=== PATIENT | male | born 1965 | race Caucasian/White ===

== ENCOUNTER 2020-07-02 09:53 | Outpatient (CLI) | payer OTHER, SELFPAY ==
--- NOTE | 2020-07-02 10:06 | USCV_ITS ---
Randolph Lancaster Age: 55 Gender: M : 1965 Exam Date: 07/02/2020 10:38 Ordering Phys: Geri Ann NP Technologist: Geetha Candelaria [place] [facility] [place]ication: REPAIRED AAA HISTORY: Diameter (cm) AP x Transverse x Length Velocity (cm/s) Waveform Prox Aorta: x x Mid Aorta: x x Distal Aorta: x x Right Iliac Prox: x x Left Iliac Prox: x x Stent Prox Landing 4.32 x 4.69 x 26.90 Aneurysmal Sac Max 3.57 x 4.16 x 27.90 Lt Lat Sac Dim Rt Lat Sac Dim Stent Dist Landing 2.95 x 4.01 x 36.60 Right Iliac Stent 1.91 x 2.05 x 47.30 Left Iliac Stent 1.48 x 1.39 x 59.10 Right Renal Art 76.00 Left Renal Art 48.50 FINDINGS: The aneurysmmeasured 4.3 x 4.7 cm proximally. Could not visualize the stent graft /aneurysm sac properly The right proximal common iliac artery measured 1.9 x 2.0 cm in diameter The left proximal common iliac artery measured 1.48 x 1.39 cm. CONCLUSIONS Maximum diameter of the aneurysm was measuring 4.3 x 4.7 cm Could not identify the aneurysm sac or stent graft properly Proximal common iliac artery segments were found to be patent and dilated. This is a suboptimal study. Needs to be repeated Dr Will Dodd MD [facility] (Electronically Signed) Final Date: 05 July 2020 17:39 S
== END 2020-07-02 09:54 | disposition home or self-care (01) ==
LOC: RAD 09:58
PROVIDERS: PCP Nurse Practitioner Family; Visit Provider Nurse Practitioner Family
DX: I71.4 Abdominal aortic aneurysm, without rupture (principal); Z98.890 Other specified postprocedural states
CPT/HCPCS: 93978

== ENCOUNTER 2020-07-08 07:56 | Outpatient (CLI) | payer OTHER, SELFPAY ==
--- NOTE | 2020-07-08 08:30 | XR_ITS ---
WS: [id number] LEFT HIP HISTORY: R10.32 - Left lower quadrant pain COMPARISON: None available. LEFT hip: No acute fracture or dislocation. Very mild degenerative changes involving the superior laura tabulum. Cortical irregularity with increasing sclerosis. Surface of the humeral head is also irregul ar. No bone destruction. No osteoblastic or osteolytic lesions. XR/XR hip LT 2-3V wo/w pel* [id number] IMPRESSION: 1. No hip fracture. 2. Mild degenerative osteoarthritic changes at the LEFT hip joint.
== END 2020-07-08 07:57 | disposition home or self-care (01) ==
LOC: RADWPI 08:00
PROVIDERS: PCP Nurse Practitioner Family; Visit Provider Surgery
DX: R10.32 Left lower quadrant pain (principal)
CPT/HCPCS: 73502

== ENCOUNTER 2020-08-15 16:51 | Emergency (ER) | payer OTHER, SELFPAY ==
[2020-08-15 17:31] VITALS: BP 131/79; PULSE 59; RESP 16; TEMP 36.6; O2SAT 96; BMI 27.1
--- NOTE | 2020-08-15 17:48 | W.ED.ABDPA2 ---
HPI - Abdominal Pain General: Chief Complaint: Abdominal Pain Stated Complaint: lower Abd pain, groin pain Time Seen by Provider: 08/15/20 17:48 History of Present Illness: HPI narrative: 55-year-old male patient comes in today with complaints of left lower abdominal pain. Patient reports he has had this pain off and on for the last 2 years after having a hernia repair. Patient reports that the pain seems to be getting worse. Patient reports that the pain is worse when he wakes up in the morning and he starts to move around. Patient reports he will take his gabapentin and then take a hot shower and seems to have improvement with the pain after the this regimen. Over the past 1 to 2 weeks patient states that the pain is become unbearable at times. Patient has seen Dr. Corrigan the surgeon and his primary care regarding these complaints. Patient was placed on gabapentin to help with this pain. Patient reports no fever or changes in bowel habits. Review of Systems General: Reports: 10 or more systems reviewed and unremarkable except in HPI and below GI: Reports: abdominal pain : Reports: testicular pain Musc: Reports: other (Left lower extremity swelling) PFSH ED PFSH: Surgical History History of AAA (abdominal aortic aneurysm) repair Status post left inguinal hernia repair Family History Mother Cancer Sister Cancer Social History (Updated 08/15/20 @ 17:38 by Lawson Arias RN) Smoking and tobacco status: former smoker Second hand smoke exposure: No Smoking risk assessment/counseling performed?: No Alcohol intake: current Alcohol intake frequency: few times a month Desire information about alcohol rehabilitation?: No Substance/Drug Use: never Adopted: No Caregiver/support person: No Lives independently: Yes Household members: none Physical Exam Const: COMMON NORMALS: no acute distress and patient oriented x3 GENERAL APPEARANCE: cooperative HENMT: COMMON NORMALS: normocephalic and Normal external nose present HEAD & SCALP: normal to inspection and normocephalic NOSE: Normal external nose present MOUTH: Normal oral and palatal mucosa present Eye: GENERAL EYE: appearance normal, both eyes and all related structures Neck/C-Spine: COMMON NORMALS: full ROM Lymph: LYMPHATIC: no lymphadenopathy noted Chest: COMMONS NORMALS: normal inspection of the chest Resp: COMMON NORMALS: normal respiratory effort EFFORT & INSPECTION: Yes able to speak in complete sentences Cardio: COMMON NORMALS: regular rate and regular rhythm RATE: regular rate RHYTHM: regular rhythm GI: OTHER: No signs of redness, no rebound or guarding, tenderness is noted along the surgical site of the left lower abdomen/inguinal area. : COMMON NORMALS: Yes no CVA tenderness BLADDER/KIDNEY EXAM: Yes no CVA tenderness Back/Pelvis: COMMON NORMALS: no CVA tenderness and thoracic and lumbar spine normal to inspection Extremity: COMMON NORMALS: normal to inspection Neuro: COMMON NORMALS: patient oriented x3 and moves all extremities Psych: COMMON NORMALS: mental status grossly normal and cooperative Skin: COMMON NORMALS: no rashes or lesions noted GENERAL SKIN EXAM: no rashes or lesions noted Course ED course: 1829,Received call from radiologist concerning some abnormality of patient's stent graft for his AAA. Patient had a abdominal aorta repair done about 5 years ago in [facility] by Dr. Johnson. I reviewed this concern with Dr. Vera who recommended we go ahead and continue with a CTA and then try to contact surgeon. 2045, CTA was completed Dr. Myers, radiologist, called and did confirm that there was a endoleak to the graft that was noted on the CTA. I reviewed this with Dr. Vera and we will contact vascular at [facility] for further consultation. 2119, talked with Dr. Corcoran who recommended patient follow-up in his clinic for further evaluation due to the endoleak of the AAA graft. Vital Signs: Vital signs: Vital Signs Temperature 97.9 F 08/15/20 17:31 Pulse Rate 59 L 08/15/20 17:31 Respiratory Rate 17 08/15/20 21:41 Blood Pressure 131/79 08/15/20 17:31 Pulse Oximetry 98 08/15/20 21:41 MDM - Abdominal Pain MDM Narrative: Medical decision making narrative: Patient comes in today for complaints of left lower quadrant abdominal pain. On exam patient appears well. Abdomen is tender in the left lower quadrant along the inguinal area of his surgical repair. Skin is warm and dry and color is pink. Vital signs are normal. Differential diagnosis includes malingering, renal calculi, hernia, reaction to surgical mesh. Laboratory values were unremarkable. CT scan of the abdomen pelvis noted a questionable leak to the AAA graft with recommendations of CTA. CTA was performed of the chest abdomen and pelvis which confirmed a endoleak to the aortic graft. No sign of significant rupture was noted at this time. Vital signs were normal. I reviewed this with Dr. Corcoran at [facility] a vascular surgeon he recommended that patient just be followed in outpatient clinic at this time since there was no signs of rupture. Patient was agreeable to this plan. Relating patient's pain that patient has some chronic back issues I believe he has a degenerative disc disease that is probably causing a sciatic type pain response. Patient will be given some hydrocodone for the next few days was recommended to follow-up with his primary care for further evaluation of his back pain. Another thought may be some surgical adhesions secondary to his hernia repair, although this is unlikely due to patient having pain radiating down his right leg. Lab Data: Labs: Lab Results 08/15/20 08/15/20 08/15/20 Range/Units 18:50 18:50 18:50 WBC 7.5 (4.0-10.0) 10^3/ uL RBC 4.09 L (4.1-5.3) 10^6/u L Hgb 13.0 (11.7-16.6) g/dL Hct 39.3 L (42.0-52.0) % MCV 96.1 H (80-94) fL MCH 31.8 (28.0-34.0) pg MCHC 33.1 (30.0-36.0) g/dL RDW 12.8 (12.1-15.1) % Plt Count 201 (130-400) 10^3/c mm MPV 10.1 (7.4-10.4) fL Neut % (Auto) 54.9 % Lymph % (Auto) 32.1 % [place] % (Auto) 8.2 % Eos % (Auto) 3.9 % Baso % (Auto) 0.8 % Neut # (Auto) 4.13 (1.8-7.7) 10^3/u L Lymph # (Auto) 2.4 (0.8-4.8) 10^3/u L [place] # (Auto) 0.6 (0.2-0.9) 10^3/u L Eos # (Auto) 0.3 (0.0-0.8) 10^3/u L Baso # (Auto) 0.1 (0.0-0.1) 10^3/u L Nucleated RBC % (a uto) 0 % Nucleated RBCs # 0.0 /100WBC D-Dimer 2.02 H (0-0.59) ug/mIFE U Sodium 137 (136-145) mmol/L Potassium 3.8 (3.5-5.1) mmol/L Chloride 105 (98-107) mmol/L Carbon Dioxide 25 (22-29) mmol/L Anion Gap 10.8 (5-19) BUN 9 (6-20) mg/dL Creatinine 0.8 (0.7-1.2) mg/dL GFR Calculation 100.7 (90-130) mL/min Glucose 86 (65-115) mg/dL Calculated Osmolal ity 282 L (285-295) mOsm/k g Calcium 8.6 (8.5-10.5) mg/dL Total Bilirubin 0.5 (0.15-1.2) mg/dL AST 17 (0-40) U/L ALT 14 (0-41) U/L Alkaline Phosphata se 68 (40-130) IU/L C-Reactive Protein 2.2 (0.0-4.9) mg/L Total Protein 7.0 (6.6-8.7) g/dL Albumin 4.2 (3.5-5.2) g/dL Globulin 2.8 (1.3-4.6) g/dL Lipase 102 H (13-60) U/L Urine Color (Yellow) Urine Appearance (CLEAR) Urine pH (5-7) Ur Specific Gravit y (1.005-1.030) Urine Protein (Negative) Urine Glucose (UA) (Normal) Urine Ketones (Negative) Urine Blood (Negative) Urine Nitrate (Negative) Urine Bilirubin (Negative) Urine Urobilinogen (Negative) mg/dL Ur Leukocyte Gwen ase (Negative) 08/15/20 Range/Units 18:56 WBC (4.0-10.0) 10^3/ uL RBC (4.1-5.3) 10^6/u L Hgb (11.7-16.6) g/dL Hct (42.0-52.0) % MCV (80-94) fL MCH (28.0-34.0) pg MCHC (30.0-36.0) g/dL RDW (12.1-15.1) % Plt Count (130-400) 10^3/c mm MPV (7.4-10.4) fL Neut % (Auto) % Lymph % (Auto) % Bur[place]on % (Auto) % Eos % (Auto) % Baso % (Auto) % Neut # (Auto) (1.8-7.7) 10^3/u L Lymph # (Auto) (0.8-4.8) 10^3/u L [place] # (Auto) (0.2-0.9) 10^3/u L Eos # (Auto) (0.0-0.8) 10^3/u L Baso # (Auto) (0.0-0.1) 10^3/u L Nucleated RBC % (a uto) % Nucleated RBCs # /100WBC D-Dimer (0-0.59) ug/mIFE U Sodium (136-145) mmol/L Potassium (3.5-5.1) mmol/L Chloride (98-107) mmol/L Carbon Dioxide (22-29) mmol/L Anion Gap (5-19) BUN (6-20) mg/dL Creatinine (0.7-1.2) mg/dL GFR Calculation (90-130) mL/min Glucose (65-115) mg/dL Calculated Osmolal ity (285-295) mOsm/k g Calcium (8.5-10.5) mg/dL Total Bilirubin (0.15-1.2) mg/dL AST (0-40) U/L ALT (0-41) U/L Alkaline Phosphata se (40-130) IU/L C-Reactive Protein (0.0-4.9) mg/L Total Protein (6.6-8.7) g/dL Albumin (3.5-5.2) g/dL Globulin (1.3-4.6) g/dL Lipase (13-60) U/L Urine Color Yellow (Yellow) Urine Appearance Clear (CLEAR) Urine pH 5 (5-7) Ur Specific Gravit y 1.015 (1.005-1.030) Urine Protein Neg (Negative) Urine Glucose (UA) Norm (Normal) Urine Ketones Negative (Negative) Urine Blood Neg (Negative) Urine Nitrate Negative (Negative) Urine Bilirubin Neg (Negative) Urine Urobilinogen 1 H (Negative) mg/dL Ur Leukocyte Gwen ase Negative (Negative) Discharge Plan Discharge Patient Disposition: Home Clinical Impression: S/P AAA repair using bifurcation graft Abdominal pain Qualifiers: Abdominal location: left lower quadrant Qualified Code(s): R10.32 - Left lower quadrant pain Condition: Stable Prescriptions: New hydrocodone-acetaminophen 5-325 mg tablet 1 tab PO Q6H PRN (Reason: pain) Qty: 20 RF: 0 No Action pravastatin 10 mg tablet 10 mg PO DAILY RF: 0 gabapentin [Neurontin] 100 mg capsule 100 mg PO TID Qty: 90 RF: 3 clopidogrel 75 mg tablet 75 mg PO DAILY@0800 RF: 0 amlodipine 10 mg tablet 10 mg PO DAILY@0800 RF: 0 aspirin [Adult Aspirin Regimen] 81 mg tablet,delayed release (DR/EC) 81 mg PO DAILY@0800 RF: 0 multivitamin Tablet 1 tab PO DAILY@0800 RF: 0 Dazey-3 + Vitamin D3 1 cap PO DAILY@0800 RF: 0 Silica Complex 1 tab PO DAILY@0800 RF: 0 Wellness Immunity 1 tab PO DAILY@0800 RF: 0 Discharge Orders: Discharge ED (Routine); Ordered 08/15/20 Ordered By: Rob Bender Referrals: Geri Ann NP [Primary Care Provider] - Discharge Diet: Usual diet Discharge Activity: Increase activity as tolerated Patient Instructions: Abdominal Pain (ED), Opioid Safety Activity Restrictions/Additional Instructions: Take medications as directed. Drink plenty of water with medication. Activity as tolerated. You will need to follow-up with vascular at [facility]. They will be contacting you with a follow-up appointment time. Dr. Corcoran was the vascular surgeon I had spoken with today. I believe the pain that you are having though is related to either some surgical adhesions from your hernia repair or may be related to your chronic back pain with sciatica. I do recommend that you follow-up regarding this pain with your primary care. Coding Level of Care Code ED Placement Manager for Mayte Fwd Exam Comprehensive
--- NOTE | 2020-08-15 18:00 | CTR_ITS ---
PROCEDURE INFORMATION: Exam: CT Abdomen And Pelvis With Contrast Exam date and time: 08/15/2020 6:08 PM Age: 55 years old Clinical indication: Abdominal pain; Other: Left lower abd pain radiating to groin; Prior surgery; Surgery type: Hernia, aaa; Additional info: Left abd/groin pain TECHNIQUE: Imaging protocol: Computed tomography of the abdomen and pelvis with contrast. Radiation optimization: All CT scans at this facility use at least one of these dose optimization techniques: automated exposure control; mA and/or kV adjustment per patient size (includes targeted exams where dose is matched to clinical indication); or iterative reconstruction. Contrast material: OMNI 300; Contrast volume: 95 ml; Contrast route: INTRAVENOUS (IV); COMPARISON: 1. CT abdomen pelvis w con* [id number] 01/22/2017 2:27 AM 2. CTA AbdAorta Runoff Leg [id number] 01/06/2018 12:20:58 PM 3. CTA Abdomen/Pelvis [id number] 02/22/2017 9:48:27 AM RADIATION DOSE METRICS: Total DLP (mGy-cm): 1587.32 FINDINGS: Lungs: Mild dependent atelectasis at the lung bases. Liver: There is 5 mm sized simple cyst in the left lobe of the liver. Gallbladder and bile ducts: The gallbladder is normal. Pancreas: The pancreas is normal. Spleen: The spleen is normal. Adrenal glands: The adrenal glands are normal. Kidneys and ureters: There is a right renal collecting system calcification. The left kidney is normal. There is no evidence of hydronephrosis. There is no stone along the course of either ureter. Stomach and bowel: There is no evidence of colitis/diverticulitis. Appendix: A normal appendix is identified. Intraperitoneal space: Unremarkable. No free air. No significant fluid collection. Vasculature: There are findings of EVAR as seen on previous examinations. The diameter of the stent graft is larger than on prior studies and now almost completely fills the original aneurysm with maximum diameter of 4.7 cm. This increase in diameter could represent failure of the stent graft. Further evaluation such as with CT angiography is suggested when clinically appropriate. There is some contrast within the upper end of the aneurysm beyond the margins of the graft and this could represent endoleak. This would be better evaluated on CT angiography. Renal arteries, celiac, and SMA remain patent. Lymph nodes: Unremarkable. No enlarged lymph nodes. Urinary bladder: Unremarkable as visualized. Reproductive: The prostate demonstrates mild nonspecific enlargement. The seminal vesicles are normal. Bones/joints: The lumbar spine demonstrates moderate degenerative changes at multiple levels. Soft tissues: Unremarkable. CT/CT abdomen pelvis w con* [id number] IMPRESSION: 1. Increasing diameter of the EVAR stent which could represent stent graft failure. Further evaluation is suggested. 2. Right nephrolithiasis. COMMENTS: THIS REPORT CONTAINS FINDINGS THAT MAY BE CRITICAL TO PATIENT CARE. The findings were verbally communicated via telephone conference with KEON FRASER at 7:03 PM FELLER OPERATOR on 08/15/2020. The findings were acknowledged and understood. Radiation Dose CTDIVOL = (mGy): DLP = 1587.32 (mGy-cm)
[2020-08-15] MEDS: iohexol 300 mg/mL 100 mL Btl IV (18:25)
[2020-08-15 19:13] LABS: Basophils # 0.1 10^3/uL (0.0-0.1); Basophils % 0.8 %; Eosinophils # 0.3 10^3/uL (0.0-0.8); Eosinophils % 3.9 %; Hematocrit 39.3 % (42.0-52.0); Lymphocytes # 2.4 10^3/uL (0.8-4.8); Lymphocytes % 32.1 %; Mean Corpuscular HGB Conc 33.1 g/dL (30.0-36.0); Mean Corpuscular Hemoglobin 31.8 pg (28.0-34.0); Mean Corpuscular Volume 96.1 fL (80-94); Mean Platelet Volume 10.1 fL (7.4-10.4); Monocytes # 0.6 10^3/uL (0.2-0.9); Monocytes % 8.2 %; Neutrophils # 4.13 10^3/uL (1.8-7.7); Neutrophils % 54.9 %; Nucleated Red Blood Cells % 0 %; Platelet Count 201 10^3/cmm (130-400); Red Blood Count 4.09 10^6/uL (4.1-5.3); Red Cell Distribution Width 12.8 % (12.1-15.1); White Blood Count 7.5 10^3/uL (4.0-10.0)
[2020-08-15 19:16] LABS: Add Urine Microscopic? NO
--- NOTE | 2020-08-15 19:18 | CTR_ITS ---
PROCEDURE INFORMATION: Exam: CT Angiography Chest With Contrast Exam date and time: 08/15/2020 7:32 PM Age: 55 years old Clinical indication: Abnormal findings; Abnormal diagnostic imaging exam; Abnormality: Aaa possibly leaking; Prior surgery; Surgery type: Hernia, aaa; Additional info: Abnormal CT exam, concern for leaking aneurysm TECHNIQUE: Imaging protocol: Computed tomographic angiography of the chest with contrast. 3D rendering (Not supervised by radiologist): MIP and/or 3D reconstructed images were created and reviewed. COMPARISON: CTA Abdomen/Pelvis [id number] 02/22/2017 9:48 AM FINDINGS: Pulmonary arteries: There is no evidence of filling defects within the pulmonary arterial circulation to suggest pulmonary embolism. Aorta: There is no thoracic aortic aneurysm or dissection. Lungs: There is calcified granuloma in the superior segment of the right lower lobe. There are 3 noncalcified nonspecific pulmonary nodules in the posterior left upper lobe measuring 6, 4, and 3 mm seen on images 24-26.For patients at low risk (minimal or absent history of smoking and of other known risk factors), no routine follow-up is indicated. For patients at high risk (history of smoking or of other known risk factors), consider optional CT Chest at 12 months. Pleural spaces: Unremarkable. No pneumothorax. No pleural effusion. Heart: There is mild atherosclerotic calcification of the coronary arteries. Lymph nodes: There are calcified right hilar lymph nodes in keeping with old granulomatous disease. There are small periaortic and AP window lymph nodes measuring up to 8 x 13 mm but no adenopathy. Bones/joints: Unremarkable. No acute fracture. Soft tissues: Unremarkable. IMPRESSION: 1. Old granulomatous disease. 2. Nonspecific noncalcified left pulmonary nodules, follow-up according to Fleischner society guidelines recommended. 3. No evidence of aortic aneurysm or dissection within the chest. PROCEDURE INFORMATION: Exam: CT Angiography Abdomen and Pelvis With Contrast Exam date and time: 08/15/2020 7:32 PM Age: 55 years old Clinical indication: Abnormal findings; Abnormal diagnostic imaging exam; Abnormality: Aaa possibly leaking; Prior surgery; Surgery type: Hernia, aaa; Additional info: Abnormal CT exam, concern for leaking aneurysm TECHNIQUE: Imaging protocol: Computed tomographic angiography of the abdomen and pelvis with contrast material. 3D rendering (Not supervised by radiologist): MIP and/or 3D reconstructed images were created by the technologist. Radiation optimization: All CT scans at this facility use at least one of these dose optimization techniques: automated exposure control; mA and/or kV adjustment per patient size (includes targeted exams where dose is matched to clinical indication); or iterative reconstruction. Contrast material: OMNI 350; Contrast volume: 95 ml; Contrast route: INTRAVENOUS (IV); COMPARISON: 1. CTA Abdomen/Pelvis [id number] 02/22/2017 9:[address] abdomen pelvis w con* [id number] 08/15/2020 6:39:07 PM 3. CTA AbdAorta Runoff Leg [id number] 01/06/2018 12:20:58 PM RADIATION DOSE METRICS: Total DLP (mGy-cm): 2117.15 FINDINGS: Aorta: Abdominal aortic aneurysm status post EVAR is again identified with endograft seen running from just below the level of the renal arteries through the iliac bifurcation and into the proximal iliac arteries on both sides. Compared with the prior examination the aortic aneurysm is approximately 1.5 cm longer. The graft end aneurysm measures approximately 4.4 cm in diameter at the entry zone compared with 3.3 on the previous examination. At a mid level aneurysm overall measures approximately 4.3 x 4.8 cm which is unchanged but the graft at this level now almost completely fills the lumen of the aneurysm and measures 4.0 x 4.3 cm compared with 3.2 x 4.0 cm on the prior study. At a lower level the graft measures 3.9 cm compared with 3.2 cm previously and just above the bifurcation the graft and aneurysm measure 3.7 cm in maximum diameter compared with 2.3 cm. Celiac trunk and mesenteric arteries: No occlusion or significant stenosis. Renal arteries: Single renal artery on each side. No evidence of renal artery stenosis or occlusion. Right iliac arteries: No occlusion or significant stenosis. Left iliac arteries: No occlusion or significant stenosis. Bypass grafts: There is contrast seen peripheral to the graft within the aorta at the upper end of the graft consistent with endoleak either type 1 or type 3 there may also be small endoleak in the distal graft just above the bifurcation. The findings on this examination are unusual post graft placement but may represent some form of graft failure. Further evaluation by vascular surgery is suggested. Liver: There is a small cyst in the left lobe liver not changed from previous. Gallbladder and bile ducts: The gallbladder is normal. Pancreas: The pancreas is normal. Spleen: The spleen is normal. Adrenal glands: The adrenal glands are normal. Kidneys and ureters: The kidneys are normal. Stomach and bowel: Unremarkable. No obstruction. No mucosal thickening. Appendix: A normal appendix is identified. Intraperitoneal space: Unremarkable. No free air. No significant fluid collection. Retroperitoneal space: There is no evidence of actual intra-abdominal or retroperitoneal leakage or other urgent finding on this examination. Lymph nodes: There is no evidence of lymphadenopathy. Urinary bladder: Unremarkable. No mass. Reproductive: Unremarkable as visualized. Bones/joints: No acute fracture. No dislocation. Soft tissues: Unremarkable. Other findings: There is no evidence of colitis/diverticulitis. CT/CT angio chest abdomen pelvis IMPRESSION: 1. Expanding EVAR graft in the abdominal aorta with findings of small endoleak. This may represent chronic graft failure. Further evaluation by vascular surgery is suggested. 2. No actual emergent finding is identified on this study. COMMENTS: Findings were discussed with KEON FRASER at 08/15/2020 8:41 PM CONTINUOUS DRIER HELPER. Radiation Dose CTDIVOL = (mGy): DLP = 2117.15 (mGy-cm)
[2020-08-15 19:21] LABS: Bilirubin Urine Neg (Negative); Blood Urine Neg (Negative); Glucose Urine UA Norm (Normal); Ketones Urine Negative (Negative); Leukocyte Esterase Urine Negative (Negative); Nitrate Urine Negative (Negative); Protein Urine Neg (Negative); Specific Gravity, Urine 1.015 (1.005-1.030); Urine Appearance Clear (CLEAR); Urine Color Yellow (Yellow); Urobilinogen Urine 1 mg/dL (Negative); pH Urine 5 (5-7)
[2020-08-15] MEDS: oxyCODONE-APAP 10-325 mg Tablet 1 TAB PO (19:25)
[2020-08-15 19:27] LABS: D Dimer 2.02 ug/mIFEU (0-0.59)
[2020-08-15 19:35] LABS: Alanine Aminotransferase 14 U/L (0-41); Albumin Level 4.2 g/dL (3.5-5.2); Alkaline Phosphatase 68 IU/L (40-130); Anion Gap 10.8 (5-19); Aspartate Amino Transferase 17 U/L (0-40); Blood Urea Nitrogen 9 mg/dL (6-20); C Reactive Protein 2.2 mg/L (0.0-4.9); Calcium 8.6 mg/dL (8.5-10.5); Carbon Dioxide 25 mmol/L (22-29); Chloride 105 mmol/L (98-107); Globulin 2.8 g/dL (1.3-4.6); Glomerular Filtration Rate 100.7 mL/min (90-130); Glucose 86 mg/dL (65-115); Lipase 102 U/L (13-60); Osmolality Calculated 282 mOsm/kg (285-295); Potassium 3.8 mmol/L (3.5-5.1); Sodium 137 mmol/L (136-145); Total Bilirubin 0.5 mg/dL (0.15-1.2)
[2020-08-15] MEDS: iohexol 350 mg/mL 100 mL Btl IV (19:40)
[2020-08-15 21:41] VITALS: RESP 17; O2SAT 98
--- NOTE | 2020-08-16 10:29 | DCPLANNER ---
Patient called rifle case repairer about a referral to a [facility] Vascular surgeon in [place], that patient stated he has not heard from them this morning about an appointment. compliance program manager got patients information, physician that seen patient, spoke with Dr. Gregory at [facility]. compliance program manager called the office, gave clinic patients information, faxed patients information to the clinic. Clinic will call patient with appointment information. compliance program manager called patient back and let patient know that his information was faxed to physicians clinic. The clinic will call patient with appointment information.
--- NOTE | 2020-08-30 14:04 | DCPLANNER ---
Patient had a follow up appointment scheduled for 08.28.20 with [facility] - patient did not attend the appointment.
== END 2020-08-15 21:42 | disposition home or self-care (01) ==
PROVIDERS: Emergency Provider Nurse Practitioner Family; PCP Nurse Practitioner Family
DX: R10.32 Left lower quadrant pain (principal); Z98.890 Other specified postprocedural states; Z79.02 Long term (current) use of antithrombotics/antiplatelets; Z79.82 Long term (current) use of aspirin; Z87.891 Personal history of nicotine dependence
CPT/HCPCS: 71275; 74174; 74177; 80053; 81003; 83690; 85025; 85378; 86140; 99283; Q9967

== ENCOUNTER 2020-08-26 11:33 | Emergency (ER) | payer OTHER, SELFPAY ==
[2020-08-26] VITALS (9 sets, daily range): BP systolic 120–179; BP diastolic 72–102; PULSE 62–98; RESP 12–21; TEMP 37.1; O2SAT 93–100; BMI 27.3
--- NOTE | 2020-08-26 11:43 | ECG_ITS ---
[facility] Test Date: 2020-08-26 Pat Name: Randolph Lancaster Department: Room: Gender: Male Universal Worker Assisted Living: : 1965 Requested By: Ravi Preston Order Number: [id number] MD: Will Dodd M.D. Measurements Intervals [place] Rate: 67 P: 265 MT: 153 QRS: -76 QRSD: 92 T: -64 QT: 340 QTc: 361 Interpretive Statements ECTOPIC ATRIAL RHYTHM LEFT AXIS DEVIATION [QRS AXIS < -30] VOLTAGE CRITERIA FOR LVH [MEETS CRITERIA IN ONE OF: R(aVL), S(V1), R(V5), R(V5/V6)+S(V1)] ST DEVIATION AND MODERATE T-WAVE ABNORMALITY, CONSIDER INFERIOR ISCHEMIA [-0.1+ mV T WAVE IN II/aVF] Compared to ECG 08/08/2015 12:48:30 Ectopic atrial rhythm now present Left-axis deviation now present Left ventricular hypertrophy now present T-wave abnormality now present Possible ischemia now present Sinus bradycardia no longer present Electronically Signed On 08-26-2020 23:57:56 CDT by Will Dodd M.D. [email or web address]
--- NOTE | 2020-08-26 11:47 | CT_ITS ---
WS: [id number] CTA CHEST ABDOMEN AND PELVIS TECHNIQUE: Noncontrast plus contrast enhanced CTA of the chest, abdomen, and pelvis with coronal and sagittal reformatted images and additional MIP Images. CLINICAL INFORMATION: AAA COMPARISON: CTA August 15, 2020 DLP: 2511.[address] scans at [facility] use at least one of these dose optimization techniques: automat ed exposure control; mA and/or kV adjustment per patient size (includes targeted exams where dose is matched to clinical indication); or iterative reconstruction. FINDINGS: Again seen is the infrarenal abdominal aortic aneurysm with aortic endograft and biiliac extension. S table aneurysm measures approximately 3.8 x 3.9 x 8.3 cm AP by transverse by craniocaudal unchanged f rom previous. Small endoleak at the proximal graft margin left eccentric location and distal margin eccentric to the right unchanged from previous. No evidence of increasing aneurysm sac. Celiac and SMA are patent. Proximal renal arteries are patent. Proximal common iliac arteries are unc hanged. Normal caliber thoracic aorta. No mediastinal or hilar lymphadenopathy. No acute pulmonary infiltrate s. Lungs well aerated. No focal pneumonia or pleural fluid. Normal caliber thoracic aorta. No evidenc e of aortic dissection. Small esophageal hiatal hernia. Tiny fat-containing umbilical hernia. No free fluid in the abdomen or pelvis. CT/CT angio chest abdomen pelvis IMPRESSION: 1. No significant changes since August 15, 2020 2. Normal caliber thoracic aorta. No evidence of aortic dissection. 3. Stable infrarenal abdominal aortic aneurysm with aortic endograft with biil iac extension. Aneurysm size is stable. 4. Tiny amount of eccentric endoleak at the graft margins consistent with type I endoleak as described above. Recommend vascular surgery consult. 5. Other nonvascular findings are stable and described above.
[2020-08-26 11:57] LABS: Basophils # 0.1 10^3/uL (0.0-0.1); Basophils % 0.7 %; Eosinophils # 0.1 10^3/uL (0.0-0.8); Eosinophils % 1.5 %; Hematocrit 46.1 % (42.0-52.0); Hemoglobin 15.4 g/dL (11.7-16.6); Lymphocytes # 2.2 10^3/uL (0.8-4.8); Mean Corpuscular HGB Conc 33.4 g/dL (30.0-36.0); Mean Corpuscular Volume 95.6 fL (80-94); Mean Platelet Volume 9.6 fL (7.4-10.4); Monocytes # 0.7 10^3/uL (0.2-0.9); Monocytes % 7.8 %; Neutrophils # 5.63 10^3/uL (1.8-7.7); Neutrophils % 64.3 %; Nucleated Red Blood Cells % 0 %; Platelet Count 260 10^3/cmm (130-400); Red Blood Count 4.82 10^6/uL (4.1-5.3); Red Cell Distribution Width 12.7 % (12.1-15.1); White Blood Count 8.8 10^3/uL (4.0-10.0)
[2020-08-26] MEDS: iohexol 350 mg/mL 100 mL Btl IV (12:06)
--- NOTE | 2020-08-26 12:08 | ED_ITS ---
HPI - Abdominal Pain General: Chief Complaint: Abdominal Pain Stated Complaint: SEVERE LOWER ABD PAIN Time Seen by Provider: 08/26/20 11:47 History of Present Illness: HPI narrative: The patient is a 55-year-old male with past medical history triple a with repair. He was seen here on the fourth and noted to have a small endoleak to his aortic graft. At that time they discussed with Dr. Soriano at [facility] who recommended the patient be followed outpatient clinic since there was no signs of rupture. He comes to the ER today again complaining of severe lower abdominal pain this time worse than before. It never completely went away in the past couple days it has worsened to an intolerable level. MD elicited complaint: abdominal pain Pain Consistency: constant Severity: severe Quality: sharp Radiation: none Exacerbating factors: nothing Relieving factors: nothing Associated Symptoms: Reports no associated symptoms; Denies GI cramping and diarrhea Review of Systems General: Reports: 10 or more systems reviewed and unremarkable except in HPI and below Const: Denies: fatigue Eyes: Denies: change in vision, blurry vision or eye redness ENMT: Denies: throat pain, swelling of lips/tongue, ear or mastoid pain or nasal congestion Card: Denies: chest pain, palpitations, irregular heart rhythm, edema, dyspnea on exertion or orthopnea Resp: Denies: dyspnea, productive cough or non-productive cough GI: Reports: abdominal pain; Denies: diarrhea or GI cramping : Denies: flank pain, urinary frequency or urinary urgency Musc: Denies: neck pain, back pain, extremity pain, joint pain, joint redness, limited range of motion or muscle weakness Skin/Breast: Denies: rash, pruritus, erythema, skin pain or skin tenderness Neuro: Denies: headache(s), numbness in extremities, weakness in extremities, sensory changes, difficulty walking, dizziness, confusion or Slurred speech present Psych: Denies: anxiety or depression Endo: Denies: polyuria All/Imm: Denies: urticaria, throat swelling or tongue swelling PFSH ED PFSH: Surgical History History of AAA (abdominal aortic aneurysm) repair Status post left inguinal hernia repair Family History Mother Cancer Sister Cancer Social History (Updated 08/15/20 @ 17:38 by Lawson Arias RN) Smoking and tobacco status: former smoker Second hand smoke exposure: No Smoking risk assessment/counseling performed?: No Alcohol intake: current Alcohol intake frequency: few times a month Desire information about alcohol rehabilitation?: No Adopted: No Caregiver/support person: No Lives independently: Yes Household members: none Physical Exam Const: COMMON NORMALS: no acute distress, average body habitus, patient oriented x3, no limitations, healthy appearing, alert and well nourished GENERAL APPEARANCE: cooperative, comfortable, well kempt and well developed ORIENTATION/CONSCIOUSNESS: Yes awake, Yes oriented to person, Yes oriented to place and Yes oriented to time HENMT: COMMON NORMALS: normocephalic, external ears normal and Normal external nose present HEAD & SCALP: normal to inspection and normocephalic NOSE: Normal external nose present EXTERNAL EAR: Yes external ears normal MOUTH: Normal oral and palatal mucosa present THROAT: posterior oropharynx normal Eye: COMMON NORMALS: Equal, round and reactive pupils present and EOMs intact bilaterally GENERAL EYE: appearance normal, both eyes and all related structures PUPIL: Yes Equal, round and reactive pupils present Neck/C-Spine: COMMON NORMALS: full ROM, no lymphadenopathy, no meningeal signs and no JVD GENERAL: Yes normal visual inspection Lymph: LYMPHATIC: no lymphadenopathy noted Chest: COMMONS NORMALS: normal inspection of the chest and normal palpation of entire chest wall Resp: COMMON NORMALS: normal respiratory effort, No retractions, No use of accessory muscles, clear to auscultation bilaterally and percussion normal EFFORT & INSPECTION: Yes able to speak in complete sentences AUSCULTATION: clear to auscultation bilaterally PERCUSSION: percussion normal Cardio: COMMON NORMALS: no JVD, regular rate, regular rhythm, S1 normal heart sound present, S2 normal heart sound present and Peripheral pulses 2+ throughout RATE: regular rate RHYTHM: regular rhythm HEART SOUNDS: S1 normal heart sound present and S2 normal heart sound present PERIPHERAL PULSES: Peripheral pulses 2+ throughout GI: COMMON NORMALS: Normal to inspection, nondistended, normoactive bowel sounds present INSPECTION: Yes normal to inspection PALPATION: Yes Firmness to palpation present (GI), Yes Tenderness to palpation present (GI) (diffuse) and Yes Guarding due to palpation present (GI) : COMMON NORMALS: Yes no CVA tenderness BLADDER/KIDNEY EXAM: Yes no CVA tenderness OTHER: Testicles not significantly tender at all. Left inguinal canal no significant hernia felt. Back/Pelvis: COMMON NORMALS: no CVA tenderness, thoracic and lumbar spine normal to inspection, no thoracic nor lumbar tenderness and thoraco-lumbar ROM normal Extremity: COMMON NORMALS: normal to inspection, full ROM, capillary refill normal, no joint enlargement and no pedal edema GENERAL: Yes normal exam except as noted Neuro: COMMON NORMALS: patient oriented x3, CN's II-XII intact bilaterally, moves all extremities, no focal motor deficits, no sensory deficits noted and gait normal SENSORIUM/ORIENTATION: Yes alert, Yes oriented to person, Yes oriented to place and Yes oriented to time MENINGEAL SIGNS: Yes no meningeal signs Psych: COMMON NORMALS: mental status grossly normal, Normal thought process present, cooperative, normal affect and speech normal APPEARANCE: Yes well kempt ATTITUDE: Yes calm SPEECH: Yes normal speech THOUGHT PROCESS: Normal thought process present Skin: COMMON NORMALS: no rashes or lesions noted GENERAL SKIN EXAM: no rashes or lesions noted Course Vital Signs: Vital signs: Vital Signs Temperature 98.7 F 08/26/20 11:35 Pulse Rate 65 08/26/20 19:38 Respiratory Rate 17 08/26/20 19:38 Blood Pressure 125/72 08/26/20 19:38 Pulse Oximetry 95 08/26/20 19:38 MDM - Abdominal Pain MDM Narrative: Medical decision making narrative: The patient came in today complaining of severe abdominal pain and has a history of a abdominal aortic aneurysm with endovascular leak seen here on the fourth. He was sent home at that time and recommended he follow-up as an outpatient and he did not. Today the CT angiogram again showed endovascular leak at the proximal and distal aspect on the left side which is consistent with his pain. He also complained of mild left testicular swelling and discomfort that radiates to the same region. Testicular ultrasound was unremarkable except for mild venodilation which can be seen in lots of men. He was nontender on exam and has no hernia there. Discussed with Dr. Sanchez vascular surgeon at [facility] who recommends transfer for further evaluation of care. Lab Data: Labs: Lab Results 08/26/20 08/26/20 08/26/20 Range/Units 11:47 11:47 11:47 WBC 8.8 (4.0-10.0) 10^3/ uL RBC 4.82 (4.1-5.3) 10^6/u L Hgb 15.4 (11.7-16.6) g/dL Hct 46.1 (42.0-52.0) % MCV 95.6 H (80-94) fL MCH 32.0 (28.0-34.0) pg MCHC 33.4 (30.0-36.0) g/dL RDW 12.7 (12.1-15.1) % Plt Count 260 (130-400) 10^3/c mm MPV 9.6 (7.4-10.4) fL Neut % (Auto) 64.3 % Lymph % (Auto) 25.0 % [place] % (Auto) 7.8 % Eos % (Auto) 1.5 % Baso % (Auto) 0.7 % Neut # (Auto) 5.63 (1.8-7.7) 10^3/u L Lymph # (Auto) 2.2 (0.8-4.8) 10^3/u L [place] # (Auto) 0.7 (0.2-0.9) 10^3/u L Eos # (Auto) 0.1 (0.0-0.8) 10^3/u L Baso # (Auto) 0.1 (0.0-0.1) 10^3/u L Nucleated RBC % (a uto) 0 % Nucleated RBCs # 0.0 /100WBC D-Dimer 1.88 H (0-0.59) ug/mIFE U Sodium 134 L (136-145) mmol/L Potassium 4.2 (3.5-5.1) mmol/L Chloride 101 (98-107) mmol/L Carbon Dioxide 23 (22-29) mmol/L Anion Gap 14.2 (5-19) BUN 17 (6-20) mg/dL Creatinine 0.9 (0.7-1.2) mg/dL GFR Calculation 87.9 L (90-130) mL/min Glucose 105 (65-115) mg/dL Calculated Osmolal ity 280 L (285-295) mOsm/k g Lactate (0.5-2.2) mmol/L Calcium 10.1 (8.5-10.5) mg/dL Total Bilirubin 0.4 (0.15-1.2) mg/dL AST 12 (0-40) U/L ALT 14 (0-41) U/L Alkaline Phosphata se 78 (40-130) IU/L Troponin T Baselin e (0-15) ng/L Troponin T 120 Min [place] (0-15) ng/L Delta Troponin T (0-10) ABS# Troponin T Hi Sens 6Hr (0-15) ng/L Troponin T Hi Sens 6Hr Delta (0-12) ng/L NT-Pro-B Natriuret Pep 29 (0-125) pg/mL Total Protein 8.0 (6.6-8.7) g/dL Albumin 4.8 (3.5-5.2) g/dL Globulin 3.2 (1.3-4.6) g/dL Lipase 45 (13-60) U/L Urine Color (Yellow) Urine Appearance (CLEAR) Urine pH (5-7) Ur Specific Gravit y (1.005-1.030) Urine Protein (Negative) Urine Glucose (UA) (Normal) Urine Ketones (Negative) Urine Blood (Negative) Urine Nitrate (Negative) Urine Bilirubin (Negative) Urine Urobilinogen (Negative) mg/dL Ur Leukocyte Gwen ase (Negative) SARS-CoV-2 Ag (Rap id) (Negative) Blood Type Rho(D) Type Antibody Screen 08/26/20 08/26/20 08/26/20 Range/Units 11:47 11:47 12:14 WBC (4.0-10.0) 10^3/ uL RBC (4.1-5.3) 10^6/u L Hgb (11.7-16.6) g/dL Hct (42.0-52.0) % MCV (80-94) fL MCH (28.0-34.0) pg MCHC (30.0-36.0) g/dL RDW (12.1-15.1) % Plt Count (130-400) 10^3/c mm MPV (7.4-10.4) fL Neut % (Auto) % Lymph % (Auto) % [place] % (Auto) % Eos % (Auto) % Baso % (Auto) % Neut # (Auto) (1.8-7.7) 10^3/u L Lymph # (Auto) (0.8-4.8) 10^3/u L [place] # (Auto) (0.2-0.9) 10^3/u L Eos # (Auto) (0.0-0.8) 10^3/u L Baso # (Auto) (0.0-0.1) 10^3/u L Nucleated RBC % (a uto) % Nucleated RBCs # /100WBC D-Dimer (0-0.59) ug/mIFE U Sodium (136-145) mmol/L Potassium (3.5-5.1) mmol/L Chloride (98-107) mmol/L Carbon Dioxide (22-29) mmol/L Anion Gap (5-19) BUN (6-20) mg/dL Creatinine (0.7-1.2) mg/dL GFR Calculation (90-130) mL/min Glucose (65-115) mg/dL Calculated Osmolal ity (285-295) mOsm/k g Lactate 1.3 (0.5-2.2) mmol/L Calcium (8.5-10.5) mg/dL Total Bilirubin (0.15-1.2) mg/dL AST (0-40) U/L ALT (0-41) U/L Alkaline Phosphata se (40-130) IU/L Troponin T Baselin e 6 (0-15) ng/L Troponin T 120 Min [place] (0-15) ng/L Delta Troponin T (0-10) ABS# Troponin T Hi Sens 6Hr (0-15) ng/L Troponin T Hi Sens 6Hr Delta (0-12) ng/L NT-Pro-B Natriuret Pep (0-125) pg/mL Total Protein (6.6-8.7) g/dL Albumin (3.5-5.2) g/dL Globulin (1.3-4.6) g/dL Lipase (13-60) U/L Urine Color (Yellow) Urine Appearance (CLEAR) Urine pH (5-7) Ur Specific Gravit y (1.005-1.030) Urine Protein (Negative) Urine Glucose (UA) (Normal) Urine Ketones (Negative) Urine Blood (Negative) Urine Nitrate (Negative) Urine Bilirubin (Negative) Urine Urobilinogen (Negative) mg/dL Ur Leukocyte Gwen ase (Negative) SARS-CoV-2 Ag (Rap id) (Negative) Blood Type O Positive Rho(D) Type Positive / 4+ Antibody Screen Negative 08/26/20 08/26/20 08/26/20 Range/Units 13:30 13:42 15:51 WBC (4.0-10.0) 10^3/ uL RBC (4.1-5.3) 10^6/u L Hgb (11.7-16.6) g/dL Hct (42.0-52.0) % MCV (80-94) fL MCH (28.0-34.0) pg MCHC (30.0-36.0) g/dL RDW (12.1-15.1) % Plt Count (130-400) 10^3/c mm MPV (7.4-10.4) fL Neut % (Auto) % Lymph % (Auto) % [place] % (Auto) % Eos % (Auto) % Baso % (Auto) % Neut # (Auto) (1.8-7.7) 10^3/u L Lymph # (Auto) (0.8-4.8) 10^3/u L [place] # (Auto) (0.2-0.9) 10^3/u L Eos # (Auto) (0.0-0.8) 10^3/u L Baso # (Auto) (0.0-0.1) 10^3/u L Nucleated RBC % (a uto) % Nucleated RBCs # /100WBC D-Dimer (0-0.59) ug/mIFE U Sodium (136-145) mmol/L Potassium (3.5-5.1) mmol/L Chloride (98-107) mmol/L Carbon Dioxide (22-29) mmol/L Anion Gap (5-19) BUN (6-20) mg/dL Creatinine (0.7-1.2) mg/dL GFR Calculation (90-130) mL/min Glucose (65-115) mg/dL Calculated Osmolal ity (285-295) mOsm/k g Lactate (0.5-2.2) mmol/L Calcium (8.5-10.5) mg/dL Total Bilirubin (0.15-1.2) mg/dL AST (0-40) U/L ALT (0-41) U/L Alkaline Phosphata se (40-130) IU/L Troponin T Baselin e (0-15) ng/L Troponin T 120 Min [place] 6.00 (0-15) ng/L Delta Troponin T 0 (0-10) ABS# Troponin T Hi Sens 6Hr (0-15) ng/L Troponin T Hi Sens 6Hr Delta (0-12) ng/L NT-Pro-B Natriuret Pep (0-125) pg/mL Total Protein (6.6-8.7) g/dL Albumin (3.5-5.2) g/dL Globulin (1.3-4.6) g/dL Lipase (13-60) U/L Urine Color Yellow (Yellow) Urine Appearance Clear (CLEAR) Urine pH 5 (5-7) Ur Specific Gravit y 1.015 (1.005-1.030) Urine Protein Neg (Negative) Urine Glucose (UA) Norm (Normal) Urine Ketones Negative (Negative) Urine Blood Neg (Negative) Urine Nitrate Negative (Negative) Urine Bilirubin Neg (Negative) Urine Urobilinogen Norm (Negative) mg/dL Ur Leukocyte [place] Negative (Negative) SARS-CoV-2 Ag (Rap id) Negative (Negative) Blood Type Rho(D) Type Antibody Screen 08/26/20 Range/Units 18:03 WBC (4.0-10.0) 10^3/ uL RBC (4.1-5.3) 10^6/u L Hgb (11.7-16.6) g/dL Hct (42.0-52.0) % MCV (80-94) fL MCH (28.0-34.0) pg MCHC (30.0-36.0) g/dL RDW (12.1-15.1) % Plt Count (130-400) 10^3/c mm MPV (7.4-10.4) fL Neut % (Auto) % Lymph % (Auto) % [place] % (Auto) % Eos % (Auto) % Baso % (Auto) % Neut # (Auto) (1.8-7.7) 10^3/u L Lymph # (Auto) (0.8-4.8) 10^3/u L [place] # (Auto) (0.2-0.9) 10^3/u L Eos # (Auto) (0.0-0.8) 10^3/u L Baso # (Auto) (0.0-0.1) 10^3/u L Nucleated RBC % (a uto) % Nucleated RBCs # /100WBC D-Dimer (0-0.59) ug/mIFE U Sodium (136-145) mmol/L Potassium (3.5-5.1) mmol/L Chloride (98-107) mmol/L Carbon Dioxide (22-29) mmol/L Anion Gap (5-19) BUN (6-20) mg/dL Creatinine (0.7-1.2) mg/dL GFR Calculation (90-130) mL/min Glucose (65-115) mg/dL Calculated Osmolal ity (285-295) mOsm/k g Lactate (0.5-2.2) mmol/L Calcium (8.5-10.5) mg/dL Total Bilirubin (0.15-1.2) mg/dL AST (0-40) U/L ALT (0-41) U/L Alkaline Phosphata se (40-130) IU/L Troponin T Baselin e (0-15) ng/L Troponin T 120 Min [place] (0-15) ng/L Delta Troponin T (0-10) ABS# Troponin T Hi Sens 6Hr 6.00 (0-15) ng/L Troponin T Hi Sens 6Hr Delta 0 (0-12) ng/L NT-Pro-B Natriuret Pep (0-125) pg/mL Total Protein (6.6-8.7) g/dL Albumin (3.5-5.2) g/dL Globulin (1.3-4.6) g/dL Lipase (13-60) U/L Urine Color (Yellow) Urine Appearance (CLEAR) Urine pH (5-7) Ur Specific Gravit y (1.005-1.030) Urine Protein (Negative) Urine Glucose (UA) (Normal) Urine Ketones (Negative) Urine Blood (Negative) Urine Nitrate (Negative) Urine Bilirubin (Negative) Urine Urobilinogen (Negative) mg/dL Ur Leukocyte G[place] a[place] (Negative) SARS-CoV-2 Ag (Rap id) (Negative) Blood Type Rho(D) Type Antibody Screen Discharge Plan Discharge Patient Disposition: Xfer Short-Term Hosp Clinical Impression: S/P AAA repair using bifurcation graft Condition: Stable Referrals: Geri Ann NP [Primary Care Provider] - Coding Level of Care Code ED Finish Cleaner for Chg Fwd Exam Comprehensive
[2020-08-26 12:09] LABS: D Dimer 1.88 ug/mIFEU (0-0.59)
[2020-08-26] MEDS: HYDROmorphone 1 mg/mL INJ 1 mL 0.5 MG IVP ×2 (12:10→19:40)
[2020-08-26 12:13] LABS: Lactate (Lactic Acid level) 1.3 mmol/L (0.5-2.2)
[2020-08-26 12:15] LABS: Troponin(5th) Baseline 6 ng/L (0-15)
[2020-08-26 12:24] LABS: Alanine Aminotransferase 14 U/L (0-41); Albumin Level 4.8 g/dL (3.5-5.2); Alkaline Phosphatase 78 IU/L (40-130); Anion Gap 14.2 (5-19); Aspartate Amino Transferase 12 U/L (0-40); Blood Urea Nitrogen 17 mg/dL (6-20); Calcium 10.1 mg/dL (8.5-10.5); Carbon Dioxide 23 mmol/L (22-29); Chloride 101 mmol/L (98-107); Globulin 3.2 g/dL (1.3-4.6); Glomerular Filtration Rate 87.9 mL/min (90-130); Glucose 105 mg/dL (65-115); Lipase 45 U/L (13-60); NT Pro B Type Natriuretic Pept 29 pg/mL (0-125); Osmolality Calculated 280 mOsm/kg (285-295); Potassium 4.2 mmol/L (3.5-5.1); Sodium 134 mmol/L (136-145); Total Bilirubin 0.4 mg/dL (0.15-1.2)
--- NOTE | 2020-08-26 13:43 | ECG_ITS ---
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 Measurements Intervals [place] Rate: 56 P: 26 AL: 162 QRS: 39 QRSD: 97 T: 51 QT: 353 QTc: 342 Interpretive Statements SINUS BRADYCARDIA POSSIBLE RIGHT VENTRICULAR CONDUCTION DELAY [RSR (QR) IN V1/V2] POSSIBLE LEFT VENTRICULAR HYPERTROPHY [VOLTAGE CRITERIA PLUS LAE OR QRS WIDENING] Compared to ECG 08/26/2020 12:20:28 Ectopic atrial rhythm no longer present Left-axis deviation no longer present T-wave abnormality no longer present Possible ischemia no longer present Electronically Signed On 08-27-2020 0:08:33 CDT by Will Dodd M.D. [id number]
[2020-08-26 13:46] LABS: Add Urine Microscopic? NO
[2020-08-26 13:51] LABS: Bilirubin Urine Neg (Negative); Blood Urine Neg (Negative); Glucose Urine UA Norm (Normal); Ketones Urine Negative (Negative); Leukocyte Esterase Urine Negative (Negative); Nitrate Urine Negative (Negative); Protein Urine Neg (Negative); Specific Gravity, Urine 1.015 (1.005-1.030); Urine Appearance Clear (CLEAR); Urine Color Yellow (Yellow); Urobilinogen Urine Norm (Negative); pH Urine 5 (5-7)
--- NOTE | 2020-08-26 14:05 | US_ITS ---
WS: [id number] SCROTAL ULTRASOUND REASON FOR EXAM: left testicle pain COMPARISON: None available. TECHNIQUE: Grayscale and duplex color Doppler ultrasound examination of the scrotum. FINDINGS: RIGHT: Right testes measures 4.5 cm x 3.1 cm x 2.3 cm. Normal blood flow. Homogeneous echotexture with no fo sia lesion. No hydrocele. Right epididymis measures 0.8 cm x 1.1 cm x 0.7 cm. No significant abnormality. LEFT: Left testes measures 4.8 cm x 2.5 cm x 2.8 cm. Normal blood flow. Homogeneous echotexture with no foc al lesion. No hydrocele. Left epididymis measures 0.9 cm x 1.0 cm x 0.9 cm. There appears to be an increased amount of serpigi nous sonolucencies over the superior left testicle in the region of the epididymis on the left when c ompared to the right. This may indicate the presence of a small varicocele. US/US scrotum [id number] IMPRESSION: No findings of testicular torsion. Possible small left varicocele.
[2020-08-26 14:15] LABS: Troponin 5 2HR Delta 0 ABS# (0-10)
[2020-08-26 16:20] LABS: SARS Covid-2 Antigen Negative (Negative)
--- NOTE | 2020-08-26 17:43 | ECG_ITS ---
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 Measurements Intervals [place] Rate: 57 P: 33 AR: 162 QRS: 58 QRSD: 90 T: 60 QT: 356 QTc: 348 Interpretive Statements SINUS BRADYCARDIA POSSIBLE LEFT VENTRICULAR HYPERTROPHY [VOLTAGE CRITERIA PLUS LAE OR QRS WIDENING] Compared to ECG 08/26/2020 13:54:16 No significant changes Electronically Signed On 08-28-2020 7:59:41 CDT by Dora Humphrey M.D. [id number]
[2020-08-26 18:29] LABS: Troponin 5 6HR Delta 0 ng/L (0-12)
== END 2020-08-26 20:10 | disposition short-term general hospital (02) ==
PROVIDERS: Emergency Provider Family Medicine; PCP Nurse Practitioner Family
DX: R10.9 Unspecified abdominal pain (principal); Z98.890 Other specified postprocedural states
CPT/HCPCS: 36415; 71275; 74174; 76870; 80053; 81003; 83605; 83690; 83880; 84484; 85025; 85378; 86850; 86900; 87426; 93005; 96374; 96376; 99285; J1170; Q9967

== ENCOUNTER 2020-09-03 11:05 | Emergency (ER) | payer OTHER, SELFPAY ==
[2020-09-03 11:06] VITALS: BP 157/96; PULSE 105; RESP 16; TEMP 36.5; O2SAT 98; BMI 25.9
--- NOTE | 2020-09-03 11:17 | US_ITS ---
WS: [id number] ULTRASOUND SOFT TISSUES LEFT antecubital fossa. HISTORY: left ac - ? IV cath left in arm COMPARISON: None available. TECHNIQUE: 2-D and color Doppler imaging is submitted. Ultrasound is directed to the antecubital fossa for possible foreign body. No foreign bodies identifi ed. There is acute thrombophlebitis noted within the very superficial basilic vein. Complete venous o cclusion. US/US soft tissue/extremity [id number] IMPRESSION: Superficial thrombophlebitis the basilic vein at the AC fossa.
--- NOTE | 2020-09-03 11:20 | ED_ITS ---
HPI - Extremity Problem General: Chief complaint: Extremity Problem,Nontraumatic Stated complaint: SOMETHING IN L ARM, POST SURGERY Time Seen by Provider: 09/03/20 11:11 Source: patient Mode of arrival: ambulatory Limitations: no limitations History of Present Illness: HPI Narrative: 55-year-old male patient presents to the emergency department with left upper extremity problem. He states recent surgery with discontinuation peripheral IV to the left antecubital space on 08/31/2020. States since discontinuation of the IV, has felt hard substance in the vein, feels something is still in it . He denies fever chills, reports discomfort of foreign body is bothersome. Complaint: other Onset (ago): day(s) (3-4) Pain Consistency: constant Location: left and upper extremity Radiation: none Relieving factors: nothing Exacerbating factors: nothing Associated symptoms: Reports no associated symptoms; Deny chest pain, fever(s) or rash Review of Systems General: Reports: 10 or more systems reviewed and unremarkable except in HPI and below Const: Denies: fever(s), chills or diaphoresis Eyes: Denies: blurry vision or eye redness ENMT: Denies: throat pain, dental pain or disequilibrium Card: Denies: chest pain, palpitations or irregular heart rhythm Resp: Denies: dyspnea, productive cough, non-productive cough or wheezing GI: Denies: abdominal pain, nausea or vomiting : Denies: dysuria Musc: Denies: neck pain, back pain or joint pain Skin/Breast: Reports: erythema and skin swelling; Denies: rash or pruritus Neuro: Denies: headache(s), weakness in extremities or behavioral changes Psych: Denies: anxiety, depression or change in appetite Michel/Lymph: Denies: easy bruising PFSH ED PFSH: Surgical History History of AAA (abdominal aortic aneurysm) repair Status post left inguinal hernia repair Family History Mother Cancer Sister Cancer Social History Smoking and tobacco status: former smoker Second hand smoke exposure: No Smoking risk assessment/counseling performed?: No Alcohol intake: current Alcohol intake frequency: few times a month Desire information about alcohol rehabilitation?: No Adopted: No Caregiver/support person: No Lives independently: Yes Household members: none Physical Exam Const: COMMON NORMALS: no acute distress, patient oriented x3, healthy appearing and alert GENERAL APPEARANCE: cooperative, comfortable and well hydrated HENMT: COMMON NORMALS: normocephalic, Normal external nose present and moist oral mucous membranes HEAD & SCALP: normocephalic NOSE: Normal external nose present Eye: COMMON NORMALS: Equal, round and reactive pupils present and EOMs intact bilaterally GENERAL EYE: appearance normal, both eyes and all related structures PUPIL: Yes Equal, round and reactive pupils present Neck/C-Spine: COMMON NORMALS: full ROM and no lymphadenopathy GENERAL: Yes normal visual inspection and Yes trachea midline CERVICAL SPINE: Yes cervical ROM normal Lymph: LYMPHATIC: no lymphadenopathy noted Chest: COMMONS NORMALS: normal inspection of the chest Resp: COMMON NORMALS: normal respiratory effort, No retractions, No use of accessory muscles and clear to auscultation bilaterally EFFORT & INSPECTION: Yes able to speak in complete sentences AUSCULTATION: clear to auscultation bilaterally Cardio: COMMON NORMALS: regular rate, regular rhythm, S1 normal heart sound present, S2 normal heart sound present and Peripheral pulses 2+ throughout RATE: regular rate RHYTHM: regular rhythm HEART SOUNDS: S1 normal heart sound present and S2 normal heart sound present PERIPHERAL PULSES: Peripheral pulses 2+ throughout GI: COMMON NORMALS: Soft to palpation and non-tender INSPECTION: Yes normal to inspection PALPATION: Yes Soft to palpation : COMMON NORMALS: Yes no CVA tenderness BLADDER/KIDNEY EXAM: Yes no CVA tenderness Back/Pelvis: COMMON NORMALS: no CVA tenderness and thoracic and lumbar spine normal to inspection Extremity: COMMON NORMALS: normal to inspection and capillary refill normal Neuro: COMMON NORMALS: patient oriented x3 and no focal motor deficits SENSORIUM/ORIENTATION: Yes alert Psych: COMMON NORMALS: mental status grossly normal, Normal thought process present and cooperative ACTIVITY/MOTOR BEHAVIOR: Yes appropriate eye contact THOUGHT PROCESS: Normal thought process present Skin: COMMON NORMALS: no rashes or lesions noted, turgor normal, no petechiae and no mottling GENERAL SKIN EXAM: no rashes or lesions noted, elasticity normal and turgor normal TRAUMA: puncture (wound to the left ac with 5 cm, hard, ? FB, no erythema or edema) OTHER: no drainage or increased warmth, no s/s DVT Course Consultations: Consultation #1: Kimi Lawler, CV surgeon, ultrasound and history of present illness as well as physical findings discussed, advised no further antithrombolytic therapy is needed. I spoke with Ceci Swift as well, Dr. Linton's nurse practitioner who advised would see patient in 2 weeks. Time: 13:00 Vital Signs: Vital signs: Vital Signs Temperature 97.7 F 09/03/20 11:06 Pulse Rate 87 09/03/20 12:52 Respiratory Rate 14 09/03/20 12:52 Blood Pressure 125/83 09/03/20 12:52 Pulse Oximetry 98 09/03/20 12:52 MDM - Extremity (Nontraumatic) Imaging Data^: Other Imaging: Radiologist's impression: [employer] [address] Ultrasound Report Signed Patient: Pravin Lancaster #: [id number] : 1965Acct#:[id number] Age/Sex: 55 / MADM Date: 09/03/20 Loc: ERRoom/Bed: Attending Dr: Ordering Provider/Ordering MD: Yadi Hidalgo Date of Service: 09/03/20 Procedure(s): US soft tissue/extremity 52527 Accession Number(s): [id number] Report Number: [id number] WS: [id number] ULTRASOUND SOFT TISSUES LEFT antecubital fossa. HISTORY: left ac - ? IV cath left in arm COMPARISON: None available. TECHNIQUE: 2-D and color Doppler imaging is submitted. Ultrasound is directed to the antecubital fossa for possible foreign body. No foreign bodies identified. There is acute thrombophlebitis noted within the very superficial basilic vein. Complete venous occlusion. US/US soft tissue/extremity 58571 IMPRESSION: Superficial thrombophlebitis the basilic vein at the AC fossa. Dictated By:Gayla Dominique DO Signed By:Gayla Dominique DOSigned Date/Time:09/03/20 1222 DD/ 1219 Discharge Plan Discharge Patient Disposition: Home Clinical Impression: Superficial thrombophlebitis Qualifiers: Superficial thrombophlebitis-Involved body area: upper extremity Laterality: left Qualified Code(s): I80.8 - Phlebitis and thrombophlebitis of other sites Condition: Stable Prescriptions: New cephalexin 500 mg capsule 500 mg PO Q6H 7 Days Qty: 28 RF: 0 No Action pravastatin 10 mg tablet 10 mg PO DAILY@0800 RF: 0 clopidogrel 75 mg tablet 75 mg PO DAILY@0800 RF: 0 amlodipine 10 mg tablet 10 mg PO DAILY@0800 RF: 0 aspirin [Adult Aspirin Regimen] 81 mg tablet,delayed release (DR/EC) 81 mg PO DAILY@0800 RF: 0 multivitamin Tablet 1 tab PO DAILY@0800 RF: 0 cyclobenzaprine 10 mg tablet 10 mg PO TID PRN (Reason: muscle spasms) RF: 0 [place]-3 + Vitamin D3 1 cap PO DAILY@0800 RF: 0 Silica Complex 1 tab PO DAILY@0800 RF: 0 Wellness Immunity 1 tab PO DAILY@0800 RF: 0 Discharge Orders: Discharge ED (Routine); Ordered 09/03/20 Ordered By: Yadi Hidalgo Referrals: Geri Ann NP [Primary Care Provider] - Discharge Diet: Usual diet Discharge Activity: Resume usual activity Patient Instructions: Venous Thromboembolism (ED), Opioid Safety, Thrombophlebitis - Superficial Activity Restrictions/Additional Instructions: Continue aspirin and Plavix as directed by your surgeon Follow-up with surgical services as scheduled Warm moist compresses to the affected area several times daily to help soften this area Take Keflex until all gone, even if better Return to the emergency department if you develop increased swelling and redness including pain of the left upper extremity Coding Level of Care Code ED Sap Crm Developer for Mayte Fwluc Exam Comprehensive
[2020-09-03 12:52] VITALS: BP 125/83; PULSE 87; RESP 14; O2SAT 98
== END 2020-09-03 13:22 | disposition home or self-care (01) ==
PROVIDERS: Emergency Provider Nurse Practitioner Family; PCP Nurse Practitioner Family
DX: I80.8 Phlebitis and thrombophlebitis of other sites (principal); Z79.02 Long term (current) use of antithrombotics/antiplatelets; Z79.82 Long term (current) use of aspirin; Z87.891 Personal history of nicotine dependence
CPT/HCPCS: 76882; 99283

== ENCOUNTER 2023-08-10 05:47 | Day surgery (SDC) | payer OTHER, SELFPAY ==
[2023-08-10] VITALS (8 sets, daily range): BP systolic 131–174; BP diastolic 78–99; PULSE 46–65; RESP 16–18; TEMP 36.1–36.7; O2SAT 92–97; BMI 25.1
--- NOTE | 2023-08-10 06:12 | ECG_ITS ---
[facility] Test Date: 2023-08-10 Pat Name: Randolph Lancaster Department: Room: Gender: Male Attending Ambulatory Care: : 1965 Requested By: Tavares Gauthier Order Number: [id number] Elvira MD: Karan Michel M.D. Measurements Intervals [place] Rate: 49 P: 29 MO: 168 QRS: 49 QRSD: 109 T: 59 QT: 388 QTc: 351 Interpretive Statements SINUS BRADYCARDIA POSSIBLE LEFT VENTRICULAR HYPERTROPHY [VOLTAGE CRITERIA PLUS LAE OR QRS WIDENING] Compared to ECG 08/26/2020 18:27:30 No significant changes Electronically Signed On 08-10-2023 7:52:01 [employer] by Karan Michel M.D. [id number]
[2023-08-10] MEDS: sodium chloride 0.9% 1,000 ML 30 ML IV (06:17)
[2023-08-10 06:24] LABS: Basophils # 0.1 10^3/uL (0.0-0.1); Basophils % 1.2 %; Eosinophils # 0.5 10^3/uL (0.0-0.8); Eosinophils % 7.9 %; Hematocrit 42.3 % (37-53); Lymphocytes # 2.3 10^3/uL (0.8-4.8); Lymphocytes % 34.8 %; Mean Corpuscular Hemoglobin 32.6 pg (27-33); Mean Corpuscular Volume 95.7 fl (82-101); Mean Platelet Volume 9.1 fL (7.4-10.4); Monocytes # 0.5 10^3/uL (0.2-0.9); Monocytes % 7.9 %; Neutrophils # 3.21 10^3/uL (1.8-7.7); Neutrophils % 47.6 %; Nucleated Red Blood Cells % 0 %; Platelet Count 220 10^3/cmm (157-399); Red Blood Count 4.42 10^6/uL (3.85-5.65); Red Cell Distribution Width 13.5 % (12.1-15.1); White Blood Count 6.73 10^3/uL (3.29-11.43)
--- NOTE | 2023-08-10 06:52 | P.ANESASSM_ITS ---
Pre-Anesthetic Assessment Height/Weight: Height 1.8 m Weight 81.647 kg Temp Pulse Resp BP Pulse Ox O2 Del Method 98.0 F 65 18 136/78 95 Room Air 08/10/23 06:04 08/10/23 06:04 08/10/23 06:04 08/10/23 06:04 08/10/23 06:04 08/10/23 06:04 Operation Date: 08/10/23 07:00 Proposed Procedures p 04713 lap right inguinal hernia repair with mes K40.90(Right) - Zheng Goodwin, DO Was Beta Anselmo taken within 24 hours: N/A Was Clonidine taken within 24 hours: N/A Last intake: Intake Last Liquid Date 08/09/23 Last Liquid Time 22:00 Last Solid Date 08/09/23 Last Solid Time 22:00 Social No tobacco Occ MJ Exam alert and oriented x 3 Airway Submandibular: within normal limits Cervical ROM: within normal limits Mallampati: Class II Dentition: false and partials Comments: Comments: Upper denture, lower partial History/ROS No significant history except as noted and No significant complaints CV/HEM AAA s/p stent repair, on plavix -- last taken 08/05 Anesthetic Plan ASA status: 2 Anesthesia: General Risk of > 500 ml blood loss (7ml/kg in children): No Medications/Allergies Home Medications Medication Instructions Recorded Confirmed Last Taken Type amlodipine 10 mg tablet 10 mg PO DAILY@0800 06/24/20 08/09/23 08/08/23 History aspirin 81 mg tablet,delayed 81 mg PO DAILY@0800 06/24/20 08/09/23 08/25/20 History release (Adult Aspirin Regimen) multivitamin 1 tab PO DAILY@0800 06/24/20 08/09/23 08/07/23 History clopidogrel 75 mg tablet 75 mg PO DAILY@0800 07/26/20 08/09/23 08/05/[address] [place]-3 + Vitamin D3 1 cap PO DAILY@0800 08/15/20 08/09/23 08/25/20 History Silica Complex 1 tab PO DAILY@0800 08/15/20 08/09/23 08/07/23 History Wellness Immunity 1 tab PO DAILY@0800 08/15/20 08/09/23 08/07/23 History Allergies Allergy/AdvReac Type Severity Reaction Status Date / Time No Known Allergies Allergy Verified 08/09/23 12:44 Current Medications Generic Name Dose Route Start Last Admin Trade Name Kings PRN Reason Stop Dose Admin Sodium Chloride 1,000 mls @ 30 mls/hr 08/10/23 06:00 08/10/23 06:17 Sodium Chloride 0.9% IV 08/11/23 05:59 30 mls/hr .Q24H CHANDNI Administration PFSH Anesthesia Surgical History Status post left inguinal hernia repair History of AAA (abdominal aortic aneurysm) repair Family History Mother Cancer Sister Cancer Social History Smoking and tobacco/nicotine status: former use of tobacco/nicotine Second hand smoke exposure: No Alcohol intake: current Alcohol intake frequency: few times a month Substance/Drug Use: never Adopted: No Caregiver/support person: No Lives independently: Yes Household members: none Data Anesthesia 08/10/23 06:15 Short CBC 08/10/23 Range/Units 06:15 WBC 6.73 (3.29-11.43) 10^3/uL Hgb 14.40 (11.27-16.99) g/dL Hct 42.3 (37-53) % MCV 95.7 (82-101) fl Plt Count 220 (157-399) 10^3/cmm Neut % (Auto) 47.6 % Neut # (Auto) 3.21 (1.8-7.7) 10^3/uL Cardiac Studies: 2 No Data to Display
--- NOTE | 2023-08-10 06:59 | P.HP_ITS ---
Providers/Chief Complaint 2 Primary Care Provider: Bentley Morrison MD Chief Complaint: K40.90 History of Present Illness Randolph Lancaster is a 58 year old male Review of Systems 2 General: Reports: 10 or more systems reviewed and unremarkable except in HPI and below Medications/Allergies Home Medications Medication Instructions Recorded Confirmed Last Taken Type amlodipine 10 mg tablet 10 mg PO DAILY@0800 06/24/20 08/09/23 08/08/23 History aspirin 81 mg tablet,delayed 81 mg PO DAILY@0800 06/24/20 08/09/23 08/25/20 History release (Adult Aspirin Regimen) multivitamin 1 tab PO DAILY@0800 06/24/20 08/09/23 08/07/23 History clopidogrel 75 mg tablet 75 mg PO DAILY@0800 07/26/20 08/09/23 08/05/23 History [place]-3 + Vitamin D3 1 cap PO DAILY@0800 08/15/20 08/09/23 08/25/20 History Silica Complex 1 tab PO DAILY@0800 08/15/20 08/09/23 08/07/23 History Wellness Immunity 1 tab PO DAILY@0800 08/15/20 08/09/23 08/07/23 History Allergies Allergy/AdvReac Type Severity Reaction Status Date / Time No Known Allergies Allergy Verified 08/09/23 12:44 PFSH Acute 2 PFSH: Surgical History Status post left inguinal hernia repair History of AAA (abdominal aortic aneurysm) repair Family History Mother Cancer Sister Cancer Social History Smoking and tobacco/nicotine status: former use of tobacco/nicotine Second hand smoke exposure: No Alcohol intake: current Alcohol intake frequency: few times a month Substance/Drug Use: never Adopted: No Caregiver/support person: No Lives independently: Yes Household members: none Vitals/I&O/Wt Last Vital Signs Temp 98.0 F 08/10/23 06:04 Pulse 65 08/10/23 06:04 Resp 18 08/10/23 06:04 BP 136/78 08/10/23 06:04 Pulse Ox 95 08/10/23 06:04 O2 Del Method Room Air 08/10/23 06:04 Weight last 48 hrs Weight 180 lb Data 08/10/23 06:15 A&P Assessment and plan (1) Right inguinal hernia: Plan Laparoscopic right inguinal hernia repair. The risks and benefits were explained and documented Attestations 2 Medical Necessity Statement*: Home Coding Level of Care Code Acute Code for Chg Fwd Diagnoses Right inguinal hernia K40.90
[2023-08-10] MEDS: ceFAZolin 2,000 MG in sodium chloride 0.9% (plus) 50 ML 100 MG IV (07:00)
[2023-08-10] MEDS: lidocaine-epi 2% PF 1:200,000 20 mL SDV XX (07:44)
--- NOTE | 2023-08-10 07:55 | PM.OP ---
Operative Report Date of procedure: August 10, 2023 Pre-op diagnosis: Right inguinal hernia Post-op diagnosis: Indirect right inguinal hernia Procedure done: Laparoscopic (TEPP) repair of right inguinal hernia with mesh Implants: Extra-large right 3D max Bard mesh Specimens removed/disposition: None Surgeon: Zheng Goodwin DO Anesthesia: General Estimated blood loss (mL): 5 Complications: None Brief History: This very pleasant 58-year-old gentleman who came into the office with a right inguinal hernia. Laparoscopic repair with mesh was indicated. The risk and benefits were explained and documented. Procedure: Patient was wheeled into the operative room and placed on the OR table in a supine position. Abdomen was inspected prepped and draped in usual sterile fashion. Time-out was performed and all present were in agreement. A 15 blade scalpel was used to make 1.2 centimeter incision infraumbilically. Combination of sharp and blunt dissection was performed down to the anterior rectus sheath which was opened sharply. The dissecting balloon was then inserted into the space of Retzius and blown up. We put the camera into the port and identified that we were in the correct space. I then placed 2 5 millimeter trocars suprapubically in the midline. I then used endokitners to bluntly dissect in the space of Retzius out laterally. An indirect inguinal hernia was identified on the right. Blunt dissection was performed to dissect down the hernia sac until the vas deferens dove medially. An extra-large right 3D max Bard inguinal mesh was then placed into the space of Retzius. The mesh was unrolled and tacked once medially at the pubic bone. The mesh laid out nicely over the spermatic cord. Photos were taken of the mesh laid out and the hernia sac laid underneath the mesh. I watched the hernia sac remained in place as insufflation was removed. Incisions were closed with 4-0 Monocryl in a subcuticular interrupted fashion. Skin glue was applied. Patient tolerated the procedure well.
--- NOTE | 2023-08-10 16:30 | ANE.PACU2 ---
Inpatient post-anesthesia follow up: Airway intact: Yes Vital signs: Temperature 97.5 F Pulse Rate 49 Respiratory Rate 18 Blood Pressure 151/92 Pulse Oximetry 95 Oxygen Delivery Me thod Room Air Oxygen Flow Rate 8 Fraction of Inspir ed Oxygen Hydration adequate: Yes Nausea and vomiting: No Pain level: 2 Mental status: Baseline
== END 2023-08-10 09:15 | disposition home or self-care (01) ==
PROVIDERS: Student in an Organized Health Care Education/Training Program; PCP Family Medicine; Visit Provider Surgery
PROC: (CPT 49650; principal; 2023-08-10 07:00)
DX: K40.90 Unilateral inguinal hernia, without obstruction or gangrene, not specified as recurrent (principal); Z79.82 Long term (current) use of aspirin; Z87.891 Personal history of nicotine dependence; Z95.5 Presence of coronary angioplasty implant and graft; Z79.02 Long term (current) use of antithrombotics/antiplatelets
CPT/HCPCS: 49650; 36415; 51702; 85025; 93005; C1781; J0690; J1100; J1170; J1885; J2250; J2405; J2704; J2710; J3010; J3490; J7030

== ENCOUNTER 2024-05-17 03:20 | Emergency (ER) | payer OTHER, SELFPAY ==
[2024-05-17 03:20] VITALS: BP 166/99; PULSE 96; RESP 18; TEMP 36.6; O2SAT 96; BMI 25.5
--- NOTE | 2024-05-17 05:22 | CTR_ITS ---
PROCEDURE INFORMATION: Exam: CT Head Without Contrast Exam date and time: 05/17/2024 3:53 AM Age: 59 years old Clinical indication: Pain; Headache not specified TECHNIQUE: Imaging protocol: Computed tomography of the head without contrast. Radiation optimization: All CT scans at this facility use at least one of these dose optimization techniques: automated exposure control; mA and/or kV adjustment per patient size (includes targeted exams where dose is matched to clinical indication); or iterative reconstruction. COMPARISON: No relevant prior studies available. RADIATION DOSE METRICS: Total DLP (mGy-cm): 198.64 FINDINGS: Brain: There is no evidence of acute parenchymal hemorrhage, extra-axial collection, or acute infarction. There is no mass effect, midline shift, or downward herniation. Cerebral ventricles: No ventriculomegaly. Paranasal sinuses: There is mild paranasal sinus mucosal thickening. Mastoid air cells: Visualized mastoid air cells are well aerated. Bones: Unremarkable. No acute fracture. Soft tissues: Unremarkable. CT/CT head wo con* [id number] IMPRESSION: No evidence of acute intracranial process.
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
[2024-05-17 05:28] VITALS: BP 166/99; PULSE 89; RESP 18; O2SAT 94
[2024-05-17 05:58] VITALS: BP 154/94; PULSE 74; RESP 16; O2SAT 99
[2024-05-17 06:14] VITALS: BP 124/78; PULSE 89; O2SAT 95
--- NOTE | 2024-05-17 06:30 | CTR_ITS ---
[facility] Final Radiology Report Call: [phone] assistance Online chat: [email or web address] Name: ALEXIA OHARA Age: 59Years M Date: 05/17/2024 SSN: -- : [id number] Study: CT CHEST WO Requesting Physician: PANTERA VOSS Images: [id number] Add?l Studies: Provided Clinical History: PROCEDURE INFORMATION: Exam: CT Chest Without Contrast; Diagnostic Exam date and time: 05/17/2024 3:57 AM Age: 59 years old Clinical indication: Chest wall pain TECHNIQUE: Imaging protocol: Diagnostic computed tomography of the chest without contrast. Radiation optimization: All CT scans at this facility use at least one of these dose optimization techniques: automated exposure control; mA and/or kV adjustment per patient size (includes targeted exams where dose is matched to clinical indication); or iterative reconstruction. COMPARISON: No relevant prior studies available. RADIATION DOSE METRICS: Total DLP (mGy-cm): 423.01 FINDINGS: Lungs: No consolidated infiltrates are appreciated. No noncalcified lung nodules or masses are identified. Pleural spaces: Unremarkable. No pneumothorax. No pleural effusion. Heart: Unremarkable. No cardiomegaly. No pericardial effusion. Lymph nodes: There are a few small mediastinal and axillary lymph nodes. No enlarged nodes are appreciated. Vasculature: The thoracic aorta is normal in caliber. There is calcified plaque involving the aorta and coronary vessels. There is a partially imaged abdominal aortic stent graft. Liver: There is a small benign-appearing hepatic cyst. Bones/joints: There is a minimally displaced left 8th rib fracture laterally. The fracture is nonsegmental. No additional fractures are appreciated. Soft tissues: Unremarkable. IMPRESSION: 1. Left 8th rib fracture. Thank you for allowing us to participate in the care of your patient. Dictated and Authenticated by: Patrick Delacruz MD 05/17/2024 5:40 AM Central Time ([place] & [place]) [facility]
== END 2024-05-17 06:15 | disposition home or self-care (01) ==
PROVIDERS: Emergency Provider Emergency Medicine; PCP Family Medicine
DX: S09.8XXA Other specified injuries of head, initial encounter (principal); S22.42XA Multiple fractures of ribs, left side, initial encounter for closed fracture; Z79.82 Long term (current) use of aspirin; Z79.02 Long term (current) use of antithrombotics/antiplatelets; Z87.891 Personal history of nicotine dependence; V86.99XA Unspecified occupant of other special all-terrain or other off-road motor vehicle injured in nontraffic accident, initial encounter
CPT/HCPCS: 70450; 71250; 99284

== ENCOUNTER 2024-06-30 09:52 | Outpatient (CLI) | payer OTHER, SELFPAY ==
--- NOTE | 2024-06-30 09:56 | CT_ITS ---
WS: [id number] CT ANGIOGRAPHY abdomen and pelvis. HISTORY: AAA, follow-up endovascular TECHNIQUE: CT angiogram is performed during IV injection. Reformation images reviewed. All CT scans a [employer] use at least one of these dose optimization techniques: automated exposure contro l; mA and/or kV adjustment per patient size (includes targeted exams where dose is matched to clinica l indication); or iterative reconstruction. CONTRAST: Omnipaque 350; 100 mL IV. DLP: 1284.16 mGy.cm COMPARISON: 08/26/2020 Emphysematous changes at the lung bases. Heart is normal size. Small hiatal hernia. Abdominal aorta: Multiphase imaging through the abdominal aorta. Patient is status post aortic endogr aft with biiliac extensions. On the prior CT from 2020 there was an endoleak along the superior graft margin which has since resolved. There is new perigraft contrast extension into the thrombus along the LEFT lateral graft towards the bifurcation. Maximum diameter of 8 mm. The overall size of the jenn robert aneurysm has increased since 2020. Maximum aneurysm is 5.4 cm as compared to 4.1 cm on the prior study. There is increasing thrombus surrounding the aortic graft. Additional areas suspicious for en dovascular leaks along the anterior and RIGHT lateral graft at the bifurcation site. Iliac stents [place] ear intact. Tortuous iliac arteries. Hepatic cysts. Normal size liver and spleen. Normal gallbladder. Normal pancreas. Kidneys are enhanci ng normally. Good opacification of the mesenteric arteries. No GI tract obstruction. No ascites or ad enopathy. Small umbilical hernia contains fat only. Advanced degenerative disc disease with vacuum di sc phenomenon at L4-5. CT/CT angio abdomen pelvis [id number] IMPRESSION: 1. Patient is status post aortic endograft and biiliac extension repair. 2. Previously described endovascular leak in 2020 has resolved. 3. Increase in size of the [place] abdominal aortic aneurysm since 2020. Maximu m diameter of the [place] aneurysm is 5.4 cm as compared to 4.1 cm. Increasing t hrombus surrounding the endovascular graft repair. 4. New, small multifocal endovascular leaks at the bifurcation. These are smal l endovascular leaks. This may be an inadequate seal at the graft attachment si te between the aorta and iliac arteries or separation of the modular components . Recommend reevaluation by vascular surgeon. 5. No recent studies for comparison. Patient did provide history of yearly gra ft evaluation. Unable to contact Dr. Morrison at the time of this dictation.
[2024-06-30] MEDS: iohexol 350 mg/mL 500 mL Btl (per mL) IV (10:29)
== END 2024-06-30 09:53 | disposition home or self-care (01) ==
LOC: RAD 09:54
PROVIDERS: PCP Family Medicine; Visit Provider Family Medicine
DX: Z95.828 Presence of other vascular implants and grafts (principal); Z85.79 Personal history of other malignant neoplasms of lymphoid, hematopoietic and related tissues; Z98.890 Other specified postprocedural states; I71.40 Abdominal aortic aneurysm, without rupture, unspecified; I74.09 Other arterial embolism and thrombosis of abdominal aorta; R91.8 Other nonspecific abnormal finding of lung field; K44.9 Diaphragmatic hernia without obstruction or gangrene; R93.5 Abnormal findings on diagnostic imaging of other abdominal regions, including retroperitoneum; I77.1 Stricture of artery; K76.89 Other specified diseases of liver; M51.369 Other intervertebral disc degeneration, lumbar region without mention of lumbar back pain or lower extremity pain; K42.9 Umbilical hernia without obstruction or gangrene
CPT/HCPCS: 74174